=== PATIENT | female | born 1980 | race Caucasian/White ===

== ENCOUNTER → 2024-04-21 14:38 | Outpatient (CLI) | payer BC, SELFPAY ==
--- NOTE | 2024-04-21 14:41 | DI.RAD.S_ITS ---
PROCEDURE: XR KNEE LT 3V INDICATIONS: LEFT KNEE SWELLING AND PAIN TECHNIQUE: 3 views of the knee were acquired. COMPARISON: None. FINDINGS: Bones: No fractures or dislocations. No suspicious bony lesions. Soft tissues: No joint effusion. No suspicious soft tissue calcifications. IMPRESSION: No acute bony abnormality or significant effusion. Dictated by: Martha Berrios M.D. on 04/21/2024 at 16:38 Approved by: Martha Berrios M.D. on 04/21/2024 at 16:38
--- NOTE | 2024-04-21 14:41 | DI.RAD.S_ITS ---
PROCEDURE: XR KNEE RT 3V INDICATIONS: RIGHT KNEE PAIN TECHNIQUE: 3 views of the knee were acquired. COMPARISON: [facility], CR, XR KNEE LT 3V, 04/21/2024, 13:47. FINDINGS: Bones: No fractures or dislocations. Patient is status post ACL repair. No suspicious bony lesions. Soft tissues: No joint effusion. No suspicious soft tissue calcifications. IMPRESSION: No acute bony abnormality or significant effusion. Dictated by: Martha Berrios M.D. on 04/21/2024 at 16:38 Approved by: Martha Berrios M.D. on 04/21/2024 at 16:39
== END ==
LOC: RAD 14:40
PROVIDERS: PCP Physician Assistant; Referring Provider Physical Medicine & Rehabilitation; Visit Provider Physical Medicine & Rehabilitation
DX: M25.562 Pain in left knee (principal); M25.462 Effusion, left knee; M25.561 Pain in right knee
CPT/HCPCS: 73562

== ENCOUNTER → 2025-04-08 07:42 | Outpatient (CLI) | payer BC, SELFPAY ==
--- NOTE | 2025-04-08 07:43 | DI.RAD.S_ITS ---
PROCEDURE: XR LUMBAR SPINE MIN 4V INDICATIONS: BACK PAIN TECHNIQUE: 5 views of the lumbar spine were acquired, including bilateral oblique views. COMPARISON: None. FINDINGS: Bones: 5 nonrib-bearing vertebrae are present. There is normal bony alignment. No vertebral body compression fractures. Mild degenerative endplate changes are noted at L3-4 through L5-S1 levels. No suspicious bony lesions. Soft tissues: Overlying bowel gas pattern is normal. No suspicious soft tissue calcifications. Oblique images: No pars defects. Bilateral bony foraminal stenosis at L4-5 and L5-S1 levels are seen. IMPRESSION: Mid to lower lumbar spine. No acute compression fracture or spondylolisthesis. Mild bilateral bony foraminal stenosis is seen at L4-5 and L5-S1 levels. Dictated by: Hossein Gonzalez M.D. on 04/08/2025 at 9:26 Approved by: Hossein Gonzalez M.D. on 04/08/2025 at 9:27
== END ==
PROVIDERS: Referring Provider Physical Medicine & Rehabilitation; Visit Provider Physical Medicine & Rehabilitation
DX: M48.061 Spinal stenosis, lumbar region without neurogenic claudication (principal); M48.07 Spinal stenosis, lumbosacral region; M54.9 Dorsalgia, unspecified
CPT/HCPCS: 72110

== ENCOUNTER → 2025-04-26 17:17 | Outpatient (CLI) | payer BC, SELFPAY ==
--- NOTE | 2025-04-26 17:18 | DI.MRI.S_ITS ---
PROCEDURE: MR LUMBAR SPINE WO CON INDICATIONS: Lumbar radiculopathy right L4-5 TECHNIQUE: Noncontrast sagittal T1 spin echo and T2 fast echo, sagittal STIR, and T2 fast spin echo through the lumbar spine. In cases with scoliosis, additional coronal T2 fast spin echo may be performed. COMPARISON: None. FINDINGS: Image quality: Excellent. Alignment and Curvature: There is normal bony alignment. Bone Marrow: Marrow is of normal overall signal. No acute vertebral body compression fractures. Spinal Cord: Conus medullaris terminates at the L1 level. Visualized cord demonstrates normal signal and size. Paraspinous Soft Tissues: No paravertebral masses. T12-L1: Normal appearance. L1-L2: Normal appearance. L2-L3: Normal appearance. L3-L4: Normal appearance. L4-L5: Shallow disc bulge without stenosis. L5-S1: Normal appearance. IMPRESSION: Mild disc bulging at L4-L5 with no disc herniation, central canal or foraminal stenosis at this time. Dictated by: Amalia Moe M.D. on 04/27/2025 at 11:42 Approved by: Amalia Moe M.D. on 04/27/2025 at 11:52
== END ==
PROVIDERS: Referring Provider Physical Medicine & Rehabilitation; Visit Provider Physical Medicine & Rehabilitation
DX: M51.369 Other intervertebral disc degeneration, lumbar region without mention of lumbar back pain or lower extremity pain (principal); M51.26 Other intervertebral disc displacement, lumbar region; M47.816 Spondylosis without myelopathy or radiculopathy, lumbar region
CPT/HCPCS: 72148